=== PATIENT | female | born 1950 | race Hispanic/Latino ===

== ENCOUNTER 2023-01-13 02:46 | Emergency (ER) | payer MEDICARE ==
[~2023-01-13] VITALS: Ht 157.5 cm; Wt 59.0 kg
[2023-01-13] MEDS ORDERED: HYDROXYZINE 25 MG TABLET PO ONE (03:00)
[2023-01-13] MEDS ORDERED: IVERMECTIN 3 MG TAB PO SCH (05:00)
[2023-01-13] MEDS ORDERED: IVER3TAB PO (06:46)
[2023-01-13] MEDS ORDERED: HYD25 PO (06:46)
[2023-01-13 12:13] VITALS: BP 160/85
== END 2023-01-13 12:16 | disposition home or self-care (01) ==
LOC: EDH 02:46
DX: B86 Scabies (principal); L29.9 Pruritus, unspecified; I10 Essential (primary) hypertension; E78.00 Pure hypercholesterolemia, unspecified; E11.9 Type 2 diabetes mellitus without complications

== ENCOUNTER 2023-04-03 19:45 | Emergency (ER) | payer MEDICARE ==
[~2023-04-03] VITALS: Ht 157.5 cm; Wt 53.1 kg
[~2023-04-03 19:45] MED LIST: HYD25 PO; IVER3TAB PO
[2023-04-04] MEDS ORDERED: IBUP-1493 PO (03:07)
[2023-04-04 04:15] VITALS: BP 122/77
== END 2023-04-04 04:20 | disposition home or self-care (01) ==
LOC: EDH 19:45
DX: M54.2 Cervicalgia (principal); E11.9 Type 2 diabetes mellitus without complications; E78.00 Pure hypercholesterolemia, unspecified; E03.9 Hypothyroidism, unspecified; I10 Essential (primary) hypertension
CPT/HCPCS: 72040

== ENCOUNTER 2023-10-02 04:59 | Emergency (ER) | payer MEDICARE ==
[~2023-10-02] VITALS: Ht 160 cm; Wt 61.2 kg
[~2023-10-02 04:59] MED LIST changes: +ALEN35TA53 PO; +BENZ-226 PO; +CETI10TA57 PO; +DORZ10DR10 OU; +DULO20CA18 PO; -HYD25 PO; -IVER3TAB PO; +LEVO125C4 PO; +LOSA50TA64 PO; +METF-444 PO; +PRAV40TA3 PO; +TRAZ-185 PO; +VITAMIN D PO
[2023-10-02] MEDS ORDERED: TRAZ-185 PO (05:54)
[2023-10-02 05:58] VITALS: BP 119/61; PULSE 90; RESP 18; O2SAT 96
== END 2023-10-02 06:05 | disposition home or self-care (01) ==
LOC: EDH 04:59
DX: G47.00 Insomnia, unspecified (principal); E11.9 Type 2 diabetes mellitus without complications; E78.00 Pure hypercholesterolemia, unspecified; I10 Essential (primary) hypertension; Z79.899 Other long term (current) drug therapy; Z90.49 Acquired absence of other specified parts of digestive tract